=== PATIENT | male | born 1990 | race Caucasian/White ===

== ENCOUNTER 2019-06-12 16:13 | Emergency (ER) | payer SELFPAY ==
[2019-06-12] MEDS ORDERED: Ondansetron 4 MG/2 ML SDV IVPUSH ONE (16:19)
[2019-06-12] MEDS ORDERED: HYDROmorphone 1 MG/ML Syringe IVPUSH ONE (16:19)
[2019-06-12] MEDS ORDERED: Ketorolac 30 MG/ML SDV IVPUSH ONE (16:41)
[2019-06-12] MEDS ORDERED: ceFAZolin 1 GM in Premix Bag 1 BAG IV ONE (16:45)
--- NOTE | 2019-06-12 16:56 | CR ---
Right hip: 3 views the right hand were obtained. Soft tissue and bony amputation are seen within the distal 2nd and 3rd fingers with residual bony fragments being seen. No additional abnormality is seen. Impression: 1. Soft tissue and bony amputation with residual bony fragments. Findings involve the distal 2nd and 3rd fingers. Diagnostic code #3 This report was dictated in [place] Standard Time
--- NOTE | 2019-06-12 18:19 | EDM.PDOC ---
ED [facility] GENERAL MEDICAL PROBLEM - General Chief Complaint: Upper Extremity Injury/Pain Stated Complaint: CUT FINGERS Time Seen by Provider: 06/12/19 16:20 Source of Information: Reports: Patient History Limitations: Reports: No Limitations - History of Present Illness INITIAL COMMENTS - FREE TEXT/NARRATIVE: Patient is a 28-year-old male with no past medical history presenting with a traumatic amputation of of 2 fingers of his right hand. Patient states this happened just prior to arrival. Patient reports using a table saw when his hands got caught in the saw. Patient reports copious bleeding and extreme pain in the second and third digits. Patient reports putting a dressing on it and coming immediately to the emergency department. Patient states the pain is worse when he moves the fingers. Patient states the bleeding is moderately controlled with pressure. In addition to that documented in the HPI above, the additional ROS was obtained : Constitutional: Denies fevers or chills Eyes: Denies vision changes ENMT: Denies sore throat CV: Denies chest pain Resp: Denies SOB GI: Denies vomiting or diarrhea : Denies painful urination MSK: Denies recent trauma Skin: Denies new rashes Neuro: Denies new numbness or tingling or weakness Endocrine: Denies unexpected weight loss Heme: Denies bleeding disorders I have reviewed the triage vital signs Const: Well nourished, well developed, appears stated age Eyes: PERRL, no conjunctival injection HENT: NCAT, Neck supple without meningismus CV: RRR, Warm, well-perfused extremities RESP: CTAB, Unlabored respiratory effort GI: soft, non-tender, non-distended, no masses MSK: Patient demonstrates right hand comminuted laceration of the index and middle finger involving the tips of the fingers with exposed bone. No arterial bleeding bleeding controlled with direct pressure. Proximal tendon function intact of the fingers. No other injuries noted of the hand. Skin: Warm, dry. No rashes Neuro: Alert, field service engineer II-XII grossly intact. Sensation and motor function of extremities grossly intact. Psych: Appropriate mood and affect Assessment and plan: Patient is a 28-year-old male with traumatic amputation of the second third fingers of his right hand. Patient has comminuted fractures of the distal phalanx on both hands. Given the complexity of the lacerations and the comminuted laceration and bone the patient will require likely amputation of the distal portion of both of his fingers. Patient requires higher level of care than can be provided here. While here, the patient was given Ancef for prophylactic antibiotics. Patient was given Dilaudid and ketorolac for pain control. In addition, patient was provided with a digital nerve block of the second and third fingers for pain control. Wound was irrigated mildly and placement was wrapped in a sterile dressing. Case was discussed with Dr. Fofana of the [facility] emergency room who accepted the patient for transfer. After detailed discussion, the patient states he would prefer to go by private vehicle than by ambulance. Risk and benefits were discussed with patient regarding transport. Patient noted understanding. Patient instructed to go directly to the emergency room where he can be further evaluated by hand assistant professor of surgery. - Related Data Allergies Allergy/AdvReac Type Severity Reaction Status Date / Time No Known Allergies Allergy Verified 06/12/19 16:22 Home Meds: Home Meds . [No Known Home Meds] 06/12/19 [History] Past Medical History - Infectious Disease History Infectious Disease History: Reports: Chicken Pox - Past Surgical History HEENT Surgical History: Reports: Naso-Sinus Surgery Neurological Surgical History: Reports: Other (See Below) Other Neurological Surgeries/Procedures: brain surgery Social & Family History - Family History Family Medical History: Noncontributory - Tobacco Use Smoking Status *Q: Never Smoker - Caffeine Use Caffeine Use: Reports: None - Recreational Drug Use Recreational Drug Use: No Review of Systems - Review of Systems Review Of Systems: See Below ED EXAM, GENERAL - Physical Exam Exam: See Below Course - Vital Signs Last Recorded V/S: Last Vital Signs Temp 36.3 C 06/12/19 18:22 Pulse 72 06/12/19 18:22 Resp 19 06/12/19 16:23 BP 112/59 L 06/12/19 18:22 Pulse Ox 97 06/12/19 18:22 - Orders/Labs/Meds Meds: Medications Discontinued Medications Generic Name Dose Route Start Last Admin Trade Name Crq PRN Reason Stop Dose Admin Hydromorphone HCl 1 mg 06/12/19 16:19 06/12/19 16:29 Dilaudid IVPUSH 06/12/19 16:20 1 mg ONETIME ONE Administration Cefazolin Sodium/Dextrose 1 gm 50 mls @ 100 mls/hr 06/12/19 16:45 06/12/19 17 :04 / Premix IV 06/12/19 17:14 100 mls/hr ONETIME ONE Administration Ketorolac Tromethamine 15 mg 06/12/19 16:41 06/12/19 17:03 Toradol IVPUSH 06/12/19 16:42 15 mg ONETIME ONE Administration Lidocaine HCl 10 ml 06/12/19 16:53 06/12/19 17:04 Xylocaine-Mpf 1% INJECT 06/12/19 16:54 10 ml ONETIME ONE Administration Lidocaine HCl Confirm 06/12/19 17:59 Xylocaine-Mpf 1% Administered 06/12/19 18:00 Dose 10 ml .ROUTE .STK-MED ONE Ondansetron HCl 4 mg 06/12/19 16:19 06/12/19 16:29 Zofran IVPUSH 06/12/19 16:20 4 mg ONETIME ONE Administration Departure - Departure Time of Disposition: 18:19 Disposition: DC/Tfer to Other 70 Clinical Impression: Traumatic amputation - Discharge Information Instructions: Crush Injury of the Hand, [id number] Referrals: PCP,None [Primary Care Provider] - Forms: ED Department Discharge Additional Instructions: The following information is given to patients seen in the emergency department who are being discharged to home. This information is to outline your options for follow-up care. We provide all patients seen in our emergency department with a follow-up referral. The need for follow-up, as well as the timing and circumstances, are variable depending upon the specifics of your emergency department visit. If you don't have a primary care physician on staff, we will provide you with a referral. We always advise you to contact your personal physician following an emergency department visit to inform them of the circumstance of the visit and for follow-up with them and/or the need for any referrals to a consulting specialist. The emergency department will also refer you to a specialist when appropriate. This referral assures that you have the opportunity for follow-up care with a specialist. All of these measure are taken in an effort to provide you with optimal care, which includes your follow-up. Under all circumstances we always encourage you to contact your private physician who remains a resource for coordinating your care. When calling for follow-up care, please make the office aware that this follow-up is from your recent emergency room visit. If for any reason you are refused follow-up, please contact the [facility] Emergency Department at and asked to speak to the emergency department charge nurse. Please go directly to the [place] emergency room for further evaluation and treatment. Sepsis Event Note - Evaluation Sepsis Screening Result: No Definite Risk - Focused Exam Vital Signs: Vital Signs Temp Pulse Resp BP Pulse Ox 06/12/19 18:22 36.3 C 72 112/59 L 97 06/12/19 16:23 37.0 C 88 19 138/95 H 95 Date Exam was Performed: 06/12/19 Time Exam was Performed: 18:36
== END 2019-06-12 18:35 | disposition other institution (70) ==
LOC: MW.ED 16:13
DX: S68.620A Partial traumatic transphalangeal amputation of right index finger, initial encounter (principal); S68.622A Partial traumatic transphalangeal amputation of right middle finger, initial encounter; W31.2XXA Contact with powered woodworking and forming machines, initial encounter
CPT/HCPCS: 64450; 73130; 96365; 96375; 99284; J0690; J1170; J1885; J2001; J2405